=== PATIENT | female | born 1985 | race Caucasian/White ===

== ENCOUNTER 2016-10-03 15:45 | Emergency (ER) | payer OTHER ==
[2016-10-03 15:50] VITALS: BP 124/84
[2016-10-03] MEDS ORDERED: ACETAMINOPHEN 325 MG TABLET PO ONE (17:37)
--- NOTE | 2016-10-03 17:42 | ERNOTE ---
ENT HPI Date of Service: 10/03/16 Presenting Symptoms: other - sore throat, fever, fatigue and body aches Time Seen by Provider: 10/03/16 16:52 Source: patient Exam Limitations: no limitations - Immun/Allergies/Home Medications Immunizations: IMMUNIZATION HX Immunizations Up to Date Yes History of Influenza Vaccine Yes Hx Pneumococcal Vaccination More Information Required Allergies/Adverse Reactions: Allergies Allergy/AdvReac Type Severity Reaction Status Date / Time codeine [Codeine] AdvReac Mild Vomiting Verified 10/03/16 15:50 Home Medications: HOME MEDICATIONS Lisdexamfetamine Dimesylate [Vyvanse] 30 mg PO DAILY 11/12/14 [Last Taken Unknown] Montelukast Sodium [Singulair] 10 mg PO DAILY 02/09/15 [Last Taken Unknown] Levothyroxine Sodium [Synthroid] 125 mcg PO DAILY 08/11/15 [Last Taken Unknown] Lurasidone HCl [Latuda] 40 mg PO DAILY 08/11/15 [Last Taken Unknown] Norgestimate-Ethinyl Estradiol [Ortho Tri-Cyclen 28 Tablet] 1 each PO DAILY [Last Taken Unknown] clonazePAM [Klonopin] 1 mg PO HS 08/11/15 [Last Taken Unknown] Bupropion HCl [Wellbutrin] 100 mg PO DAILY 09/16/15 [Last Taken Unknown] Metoprolol Succinate [Toprol Xl] 25 mg PO DAILY 11/01/15 [Last Taken Unknown] Dextroamphetamine/Amphetamine [Adderall 30 mg Tablet] 30 mg PO BID 10/03/16 [ Last Taken Unknown] Ranitidine HCl [Zantac] 150 mg PO BID 10/03/16 [Last Taken Unknown] - Pain Score Pain Score #1 Pain Score: 3 - History of Present Illness Narrative: Patient is a 31 year old female who presents to ED via POV with complaints of sore throat, low grade fever, body aches and fatigue. Patient states sore throat started Wednesday morning followed by low grade fever 99.6 last night. States she went to bed early complaining of fatigue and overall body aches. States was in close contact with a friend who had a sick child who tested positive for strep on Wednesday. Review of Systems - Review of Systems Constitutional: Present: fever, chills, fatigue. Absent: diaphoresis, weakness , malaise, weight loss EYE: Absent: eye pain, eye discharge, blurred vision, double vision, vision changes ENT: Present: sore throat. Absent: ear pain, ear discharge, pulling on ears, nose pain, nose congestion, nasal drainage, throat swelling Respiratory: Present: no symptoms reported. Absent: shortness of breath, cough , wheezing, stridor Cardiology: Present: no symptoms reported. Absent: chest pain, palpitations, syncope, edema Gastrointestinal/Abdominal: Present: no symptoms reported. Absent: nausea, vomiting, diarrhea, abdominal pain Genitourinary: Present: no symptoms reported Musculoskeletal: Present: muscle pain, joint pain Skin: Present: no symptoms reported. Absent: rash, dryness Neurological: Present: no symptoms reported Endocrine: Present: no symptoms reported Hematologic/Lymphatic: Present: no symptoms reported. Absent: swollen glands Psych: Present: no symptoms reported - Patient's Past Medical History Patient History - Medical: Anxiety, Bipolar, Diabetes Type 2, Depression, Hypothyroidism, Osteoarthritis, Other Patient History - Cardiac/Respiratory: Arrhythmias Patient History - Cancer: No Hx of Cancer Patient History - Surgical Procedures: Cholecystectomy, Ear Tubes, Other Patient History - Other: None LMP (Calendar): 10/12/15 - Social History Living Situations: home Abuse History: No History of abuse Psych History: Hx of Anxiety, Hx of Depression, Hx of Bipolar Disorder, Current tx/ever been on anti-depressants or anti-anxiety meds Smoking Status: Former smoker Have you smoked in the past 12 months: No Do you dip or chew tobacco: No Alcohol Use: none Drug Use: none - Immunizations Immunizations Up to Date: Yes Hx Pneumococcal Vaccination: More Information Required to Determine History of Influenza Vaccine: Yes Physical Exam - Physical Exam General Appearance: Present: wd/wn, alert, no apparent distress Eye Exam: Normal inspection: bilateral, PERRL: bilateral Ears, Nose, Throat: Present: normal ENT inspection, hearing grossly normal, normal pharynx. Absent: nasal congestion, sinus pain/drainage, pharyngeal erythema, pharyngeal swelling, tonsillar exudate, tonsillar swelling, dry mucous membranes Neck: Present: normal inspection, nontender, supple, full range of motion. Absent: limited range of motion, lymphadenopathy (R), lymphadenopathy (L) Respiratory: Present: no respiratory distress, normal breath sounds, no accessory muscle use, chest nontender, lungs clear. Absent: chest tenderness, respiratory distress, accessory muscle use, decreased breath sounds Cardiovascular/Chest: Present: regular rate, rhythm, no murmur, normal peripheral pulses Peripheral Pulses: N=norm/S=strong/W=weak/B=bound/A=absent: Radial (R): Normal, Radial (L): Normal Gastrointestinal/Abdominal: Present: normal bowel sounds, nontender, nondistended, soft, no organomegaly Rectal Exam: Present: deferred Back Exam: Present: normal inspection, normal range of motion Extremity Exam: Present: normal inspection, non-tender, no edema, normal range of motion Neurological Exam: Present: alert, oriented, normal mood/affect, no motor/ sensory deficits Skin Exam: Present: normal color, warm/dry Lymphatic Exam: Present: no adenopathy ED Progress - Results and Orders Patient's Lab Results:: I have reviewed the patient's lab results. - Vital Signs Patient's Vital Signs:: I have reviewed the patient's vital signs. Vital Signs: Vital Signs 10/03/16 15:47 Temperature 36.8 C Pulse Rate 103 H Respiratory 14 Rate Blood Pressure 124/84 O2 Sat by Pulse 96 Oximetry - Progress/Reassessment Chief Complaint: Sore Throat Progress Note-Subjective: 10/03/16 18:48 RN went to swab for flu and patient was not in room. Sona RN attempted to call patient to see where she was and no answer so message was left Departure Clinical Impression: Viral fever - Departure Disposition: Against medical advice Condition: Good Referrals: Landy Marshall ARNP [Primary Care Provider] -
== END 2016-10-03 18:45 | disposition left against medical advice (07) ==
LOC: ER 15:45
DX: R50.9 Fever, unspecified (principal); Z87.891 Personal history of nicotine dependence; E03.9 Hypothyroidism, unspecified; F41.9 Anxiety disorder, unspecified; Z53.29 Procedure and treatment not carried out because of patient's decision for other reasons

== ENCOUNTER 2016-10-06 08:10 | Emergency (ER) | payer OTHER ==
[2016-10-06 08:19] VITALS: BP 133/95
[2016-10-06] MEDS ORDERED: ONDANSETRON 4 MG TAB.RAPDIS PO ONE (09:09)
[2016-10-06] MEDS ORDERED: ONDANSETRON 4 MG TAB.RAPDIS ONE (09:10)
--- NOTE | 2016-10-06 09:15 | ERNOTE ---
Abdominal HPI - General Chief Complaint: Dizziness Time Seen by Provider: 10/06/16 09:00 Source: patient Exam Limitations: no limitations - Immun/Allergies/Home Medications Immunizatons: IMMUNIZATION HX Immunizations Up to Date Yes History of Influenza Vaccine Yes Hx Pneumococcal Vaccination More Information Required Allergies/Adverse Reactions: Allergies codeine [Codeine] Adverse Reaction (Mild, Verified 10/06/16 08:19) Vomiting Home Medications: HOME MEDICATIONS Lisdexamfetamine Dimesylate [Vyvanse] 30 mg PO DAILY 11/12/14 [Last Taken Unknown] Montelukast Sodium [Singulair] 10 mg PO DAILY 02/09/15 [Last Taken Unknown] Levothyroxine Sodium [Synthroid] 125 mcg PO DAILY 08/11/15 [Last Taken Unknown] Lurasidone HCl [Latuda] 40 mg PO DAILY 08/11/15 [Last Taken Unknown] Norgestimate-Ethinyl Estradiol [Ortho Tri-Cyclen 28 Tablet] 1 each PO DAILY [Last Taken Unknown] clonazePAM [Klonopin] 1 mg PO HS 08/11/15 [Last Taken Unknown] Bupropion HCl [Wellbutrin] 100 mg PO DAILY 09/16/15 [Last Taken Unknown] Metoprolol Succinate [Toprol Xl] 25 mg PO DAILY 11/01/15 [Last Taken Unknown] Dextroamphetamine/Amphetamine [Adderall 30 mg Tablet] 30 mg PO BID 10/03/16 [ Last Taken Unknown] Ranitidine HCl [Zantac] 150 mg PO BID 10/03/16 [Last Taken Unknown] Ondansetron [Zofran Odt] 4 mg PO Q4H PRN #10 tab 10/06/16 [Last Taken Unknown] - History of Present Illness Narrative: Patient started with URI symptoms five days ago and was seen in the ER on 10/03 to get checked for strep as she has been exposed. Strep was negative, patient left before she could be checked for influenza as she was also complaining about body aches. This morning she started to vomit, vomited three times, non since getting here. She has had loose BM for a few days. 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 Absent: fever, chills ENT: Present: nose congestion, nasal drainage. Absent: sore throat Respiratory: Present: cough. Absent: shortness of breath Cardiology: Absent: chest pain Gastrointestinal/Abdominal: Present: nausea, vomiting, diarrhea. Absent: abdominal pain Genitourinary: Present: no symptoms reported Musculoskeletal: Present: muscle pain - resolved Skin: Absent: rash Neurological: Absent: headache - Patient's Past Medical History Patient History - Medical: Anxiety, Bipolar, Diabetes Type 2, Depression, Hypothyroidism, Osteoarthritis, Other Patient History - Cardiac/Respiratory: Arrhythmias Patient History - Cancer: No Hx of Cancer Patient History - Surgical Procedures: Cholecystectomy, Ear Tubes, Other Patient History - Other: None LMP (Calendar): 10/12/15 - Social History Living Situations: home Abuse History: No History of abuse Psych History: Hx of Anxiety, Hx of Depression, Hx of Bipolar Disorder, Current tx/ever been on anti-depressants or anti-anxiety meds Smoking Status: Never smoker Have you smoked in the past 12 months: No Alcohol Use: none Drug Use: none - Immunizations Immunizations Up to Date: Yes Hx Pneumococcal Vaccination: More Information Required to Determine History of Influenza Vaccine: Yes Physical Exam - Physical Exam General Appearance: Present: wd/wn, alert, no apparent distress, obese Eye Exam: Normal inspection: bilateral, PERRL: bilateral Ears, Nose, Throat: Present: normal ENT inspection, normal pharynx Respiratory: Present: no respiratory distress, normal breath sounds, lungs clear Cardiovascular/Chest: Present: regular rate, rhythm, no murmur Gastrointestinal/Abdominal: Present: normal bowel sounds, nondistended, soft, tenderness - minimal throughout Neurological Exam: Present: alert, oriented, normal mood/affect Skin Exam: Present: normal color, warm/dry ED Progress - Vital Signs Patient's Vital Signs:: I have reviewed the patient's vital signs. Vital Signs: Vital Signs 10/06/16 08:16 Temperature 36.1 C L Pulse Rate 86 Respiratory 16 Rate Blood Pressure 133/95 O2 Sat by Pulse 96 Oximetry - Progress/Reassessment Chief Complaint: Dizziness Progress Note-Subjective: 10/06/16 09:37 tolerating po after zofran Departure - Departure Clinical Impression: Gastroenteritis and colitis, viral Disposition: Home self-care Condition: Good Instructions: Viral Gastroenteritis, Adult, [id number] Referrals: Rolando,Landy, [facility] [Primary Care Provider] - (needed) Prescriptions: Ondansetron [Zofran Odt] 4 mg PO Q4H PRN #10 tab PRN Reason: Nausea And Vomiting
== END 2016-10-06 09:40 | disposition home or self-care (01) ==
LOC: ER 08:10
DX: A08.4 Viral intestinal infection, unspecified (principal); E03.9 Hypothyroidism, unspecified; F41.9 Anxiety disorder, unspecified